=== PATIENT | female | born 1950 | race Caucasian/White ===

== ENCOUNTER → 2018-01-27 | Outpatient (CLI) | payer MEDICARE, OTHER ==
[~2018-01-27] MED LIST: ASCO1TAB4 PO; CALC1TAB2 PO; ESCI5TAB PO; FOLI0.8C PO; GINK120C PO; HYDR-3245 PO; LOSA25TA5 PO; LOVA10TA PO; MAGN71.5 PO; MULT-709 PO; OMEP-110 PO; ROPI1TAB2 PO; TRAM200T17 PO; TRIA1TAB3 PO; VITA1CAP15 PO
== END | disposition home or self-care (01) ==
LOC: CVU 14:34
PROVIDERS: ATTEND Internal Medicine Cardiovascular Disease
DX: I35.8 Other nonrheumatic aortic valve disorders (principal); I10 Essential (primary) hypertension; E78.5 Hyperlipidemia, unspecified
CPT/HCPCS: 93306